=== PATIENT | male | born 1995 | race Caucasian/White ===

== ENCOUNTER 2016-07-18 07:29 | Emergency (ER) | payer MEDICAID ==
[~2016-07-18] VITALS: Ht 170.2 cm; Wt 63.5 kg
[2016-07-18 07:38] VITALS: BP 142/63; PULSE 63; RESP 14; TEMP 98.4; O2SAT 98
[2016-07-18] MEDS ORDERED: PENI250T59 PO (07:51)
--- NOTE | 2016-07-18 07:54 | PD ---
HPI Chief Complaint: Oral / Dental Pain or Problem Time Seen by Provider: 07:51 Travel History International Travel<30 days: No Contact w/Intl Traveler<30days: No Traveled to known affect area: No History of Present Illness HPI 20-year-old male presents to the emergency department for evaluation of left upper posterior dental pain. Patient states that 2 months ago he had an infection in his left upper posterior wisdom tooth and the abdomen with some tooth removed. States that since it was removed he has had no problems until 2 days ago when he began to have pain in his left upper posterior molar. States he has a little bit of swelling as well at the area. He denies any discharge or drainage, fever, chills, nausea, vomiting, difficulty swallowing. He has not taken anything for symptoms so far. States that he called his dentist and was told to come to the emergency department. No other complaints. PFSH Past Medical History Medical History: Denies Significant Hx Hx Anticoagulant Therapy: No Cardiovascular Problems: No Chemotherapy: No Cerebrovascular Accident: No Diabetes: No Respiratory: No Tetanus Vaccination: < 5 Years Past Surgical History Surgical History: No Previous Surgery Social History Alcohol Use: Yes Tobacco Use: Yes Substance Use: No Allergies-Medications (Allergen,Severity, Reaction): Coded Allergies: No Known Allergies (Unverified , 07/18/16) Reported Meds & Prescriptions Reported Meds & Active Scripts Active Penicillin Vk (Penicillin V Potassium) 250 Mg Tab 500 Mg PO Q8H 10 Days Review of Systems Except as stated in HPI: all other systems reviewed are Neg Physical Exam Narrative GENERAL: Well-nourished and well-developed pleasant patient in no acute distress who is nontoxic appearing. SKIN: Warm and dry. HEAD: Normocephalic and atraumatic. EYES: No injection, drainage, or hyphema noted. PERRLA. EOMI. ENT: No nasal drainage noted. Oropharynx is clear and the TMs are normal with good landmarks. DENTAL: Mild erythema and swelling of left upper posterior gingiva. No discharge or drainage, no fluctuance. NECK: Supple and the trachea is midline. CARDIOVASCULAR: Regular rate and rhythm. RESPIRATORY: Breath sounds are equal bilaterally with no accessory muscle use, wheezing, rhonchi, or crackles. NEUROLOGICAL: Awake, alert, and oriented. Normal speech and gait. Cranial nerves are grossly intact. Data Data Last Documented VS Vital Signs Date Time Temp Pulse Resp B/P Pulse Ox O2 Delivery O2 Flow Rate FiO2 07/18/16 07:38 98.4 63 14 142/63 98 MDM Medical Decision Making Medical Screen Exam Complete: Yes Emergency Medical Condition: Yes Differential Diagnosis Dental infection versus dental caries versus gingivitis Narrative Course 20-year-old male presents to the emergency department for evaluation of left upper posterior dental pain. Patient is afebrile, vital signs are stable. He has a little bit of swelling and erythema to the left upper posterior gingiva suggesting there is mild infection. We'll treat the patient with penicillin VK. Instructed to follow-up with his dentist. Patient verbalizes understanding and agreement with treatment plan. Diagnosis Primary Impression: Dental infection Referrals: Dentist Patient Instructions: General Instructions Additional Instructions: Take medications as prescribed with food and a full glass of water. Follow-up with your Dentist Return to the ED for any acute worsening of symptoms. Med/Other Pt SpecificInfo: Prescription(s) given Scripts Penicillin V Potassium (Penicillin Vk)250 Mg Rwd477 Mg PO Q8H 10 Days Ref 0 Prov:Jordin Hendrickson MD 07/18/16 Disposition: 01 DISCHARGE HOME Condition: Stable Harriet Birch Jul 18, 2016 07:54
== END 2016-07-18 08:11 | disposition home or self-care (01) ==
LOC: NEPB 07:29
DX: K04.7 Periapical abscess without sinus (principal); Z72.0 Tobacco use
CPT/HCPCS: 99282